=== PATIENT | female | born 1960 | race Caucasian/White ===

== ENCOUNTER 2021-02-02 17:19 | Emergency (ER) | payer BC, SELFPAY ==
--- NOTE | ~2021-02-02 | XR_ITS ---
EXAMINATION: XR HAND, RIGHT CLINICAL INFORMATION: Injury 4th and 5th digit, right hand. COMPARISON: None TECHNIQUE: PA, lateral, and oblique views of the right hand. FINDINGS: Subtle lucency in the soft tissues along the ulnar aspect of the 5th digit, may reflect a soft tissue laceration. No radiopaque foreign body is identified. No acute fracture or dislocation is seen. There are arthritic changes present. 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 Arthritic changes in the IP joints of the fingers, including the 2nd through 5th DIP joints. XR/XR hand RT min 3V IMPRESSION: 1. No radiopaque foreign bodies identified by x-ray. 2. No evidence of acute fracture or dislocation. 3. Arthritic changes as above.
[2021-02-02 17:25] VITALS: BP 145/85; PULSE 80; RESP 12; TEMP 36.8; O2SAT 97; BMI 35.3
--- NOTE | 2021-02-02 17:49 | ED_ITS ---
HPI - Animal Bite General Chief Complaint: Animal Bite Stated Complaint: dog bite Time Seen by Provider: 02/02/21 17:49 Source: patient and family () Mode of arrival: ambulatory Limitations: no limitations History of Present Illness HPI narrative: 60-year-old female came in after was bitten by her own dog, patient was trimming his nail and tail the dog got anxious and bit the patient, patient sustained a small bite on her right 5th and 4th in fingers. Patient remember her own last tetanus shot, dog is up-to-date on his vaccination and no change in a dog behavior. Related Data Previous Rx's Medication Instructions Recorded amoxicillin-pot clavulanate 1 tab PO BID #20 tab 02/02/21 [Augmentin] Allergies Allergy/AdvReac Type Severity Reaction Status Date / Time No Known Allergies Allergy Verified 02/02/21 17:36 Review of Systems Review of Systems: All other systems are reviewed and are negative Constitutional: Reports as per HPI and Reports no additional constitutional complaints Eyes: Reports as per HPI and Reports no additional eye complaints Reports system reviewed and no additional complaints, except as documented Cardiovascular: Reports as per HPI and Reports no additional cardiovascular complaints Respiratory: Reports as per HPI and Reports no additional respiratory complaints Gastrointestinal: Reports as per HPI and Reports no additional gastrointestinal complaints Genitourinary: Reports no additional female genitourinary complaints Musculoskeletal: Reports no additional musculoskeletal complaints Skin/Breast: Reports system reviewed and no additional complaints, except as docu Psychiatric: Reports no additional psychiatric complaints Endocrine: Reports no additional endocrine complaints Hematologic/Lymphatic: Reports no additional hematologic/lymphatic complaints Allergic/Immunologic: Reports no additional allergic/immunologic complaints Reports system reviewed and no additional complaints, except as documented and Reports Abnormal speech present [facility] Social History Social History Alcohol intake: never Use of substances other than those prescribed or required for medical reasons: No Any prior treatment program specific to substance use: No Advance Directives: No Physical Exam Vital Signs: Vital Signs: Last Vital Signs Temp 98.3 F 02/02/21 17:25 Pulse 80 02/02/21 17:25 Resp 12 02/02/21 17:25 BP 145/85 H 02/02/21 17:25 Pulse Ox 97 02/02/21 17:25 Body Mass Index 35.3 Vital signs have been reviewed as appeared to be correct. Blood pressure normal. Heart rate normal. Respiration rate normal. Temperature normal. Oxygen saturation normal. Appearance: Alert. Oriented X3. No acute distress. Head: Normal external exam. Normocephalic. Atraumatic. No Christianson signs noted. No raccoon eyes noted Eyes: PERRLA. EOMI. Conjunctiva and sclera normal. Eyelids normal. ENT: TM's Normal. Pharynx normal. Uvula midline. Moist mucous membranes. No trismus noted. No drooling noted. No muffled voice noted. Neck: Normal inspection. Neck supple. FROM. No adenopathy. Thyroid Normal. No meningeal signs. No neck mass noted. CVS: Normal heart rate and rhythm. Heart sound normal. No murmurs noted. Pulses normal throughout. Respiratory: No respiratory distress. Painless inspiration. Breath sounds emily l. No wheezes/rales/rhonchi noted. Chest nontender. No accessory muscle usage noted or decreased air movement noted. Abdomen: Soft and nontender. Bowel sounds normal in all 4 quadrants. No distention noted. No organomegaly noted. No visible injury noted. Back: No CVA tenderness. Full range of motion noted. Skin: Skin warm and dry. Normal skin color. Normal skin turgor. No rashes/lesions/lacerations noted. Extremities: 3 x 1 cm laceration on the dorsal aspect of the right 5th finger no active bleeding, move 5th finger in for range, small puncture wound on dorsum of the 4th finger, full range of motion of the right 4th finger, neurovascular exam is intact. Neuro: Oriented X 3. No motor deficit. No sensory deficit. Reflexes normal. Course Course Course Narrative: Assessment and plan. Dog bite was up-to-date on his immunization, will not suture and laceration on the finger worry of infection will start the patient on Augmentin, cleaned the wound with dressing. Discharge Plan Discharge Clinical Impression: Dog bite Patient Disposition: Home, Self-Care Instructions: Animal Bite (ED) Prescriptions: New amoxicillin-pot clavulanate [Augmentin] 500-125 mg tablet 1 tab PO BID Qty: 20 RF: 0 Referrals: Jagruti Lopez MD [Primary Care Provider] - 2 days Stand Alone Forms: Work/School Release
[2021-02-02] MEDS: Diphth,Pertus(ACell),Tet Adult 0.5 ML SYRINGE IM (18:42)
[2021-02-02] MEDS: Amoxicillin/Potassium Clav 500 MG TABLET PO (18:43)
--- NOTE | 2021-02-02 18:54 | PC.NURSE ---
BITE TO RIGHT PINKY AND RING FINGER FLUSHED WITH NS AND ANTIBIOTIC OINTMENT APPLIED WITH DSD.
== END 2021-02-02 19:02 | disposition home or self-care (01) ==
PROVIDERS: Emergency Provider Emergency Medicine; PCP Internal Medicine
DX: S61.216A Laceration without foreign body of right little finger without damage to nail, initial encounter (principal); S61.234A Puncture wound without foreign body of right ring finger without damage to nail, initial encounter; W54.0XXA Bitten by dog, initial encounter; Y93.K3 Activity, grooming and shearing an animal; Y92.019 Unspecified place in single-family (private) house as the place of occurrence of the external cause; Y99.9 Unspecified external cause status
CPT/HCPCS: 73130; 90471; 90715; 99284

== ENCOUNTER 2022-01-14 09:31 | Outpatient (REF) | payer BC, SELFPAY ==
--- NOTE | 2022-01-14 09:36 | ECG_ITS ---
Test Reason : htn Blood Pressure : / mmHG Vent. Rate : 077 BPM Atrial Rate : 077 BPM P-R Int : 134 ms QRS Dur : 072 ms QT Int : 404 ms P-R-T Axes : 024 014 036 degrees QTc Int : 457 ms Normal sinus rhythm Nonspecific ST and T wave abnormality Abnormal ECG No previous ECGs available Referred By: Renu Fregoso Electronically Signed By:DARI RUBIO MD
[2022-01-14 09:46] LABS: MANUAL DIFF FLAG NO
[2022-01-14 10:07] LABS: Basophils Absolute Auto 0.1 X10*3/uL (0.0-0.2); Eosinophils Absolute Auto 0.4 X10*3/uL (0.0-0.4); Eosinophils Percent Auto 6.2 % (0-4); Hematocrit 41.5 % (37.0-47.0); Hemoglobin 13.5 g/dl (12.0-16.0); Imm Gran Abs Auto 0.01 X10*3/uL (0.00-0.03); Imm Gran Pct Auto 0.2 % (0.0-0.4); Lymphocytes Percent Auto 32.3 % (20-40); Mean Corpuscular HGB Conc 32.5 g/dl (31.0-35.0); Mean Corpuscular Hemoglobin 29.6 pg (27.0-33.0); Mean Platelet Volume 9.4 fL (9.4-12.3); Monocytes Absolute Auto 0.4 X10*3/uL (0.1-1.2); Neutrophils Absolute Auto 3.4 x10*3/uL (2.0-8.3); Neutrophils Percent Auto 54.3 % (45-73); Platelet Count 333 X10*3/uL (160-400); Red Blood Count 4.56 X10*6/uL (4.20-5.50); Red Cell Distribution Width 12.6 % (11.0-16.0); White Blood Count 6.2 X10*3/uL (4.8-10.8)
[2022-01-14 10:48] LABS: Alanine Aminotransferase 18 U/L (0-31); Albumin Level 4.1 g/dL (3.5-5.0); Alkaline Phosphatase 73 U/L (39-117); Anion Gap 13 (12-20); Aspartate Amino Transferase 16 U/L (5-31); Bilirubin Total 0.6 mg/dL (0.0-1.0); Blood Urea Nitrogen 14 mg/dL (9-16); Calcium 9.4 mg/dL (8.4-10.2); Carbon Dioxide 26 mmol/L (22-29); Chloride 103 mmol/L (96-108); Cholesterol 221 mg/dL; Estimated Glomerular Filt Rate > 60; Glucose Fasting 109 mg/dL (60-99); HDL Cholesterol 52 mg/dL; LDL Cholesterol Calculated 144 mg/dl; Potassium 3.8 mmol/L (3.3-5.1); Sodium 138 mmol/L (135-145); Total Protein 7.1 g/dL (6.5-8.0); Triglycerides 127 mg/dL
[2022-01-14 10:53] LABS: TSH reflex Free T4 0.07 uIU/mL (0.32-4.0)
[2022-01-14 12:02] LABS: Free T4 (Free Thyroxine) 1.21 ng/dL (0.71-1.85)
[2022-01-18 13:56] LABS: Vitamin D 25-OH, D2 <4 ng/mL; Vitamin D 25-OH, D3 56 ng/mL; Vitamin D 25-OH, Total 56 ng/mL (30-100)
== END 2022-01-14 09:32 | disposition home or self-care (01) ==
LOC: HO.LAB 09:31
PROVIDERS: Visit Provider Nurse Practitioner Family
DX: E03.9 Hypothyroidism, unspecified (principal); E78.00 Pure hypercholesterolemia, unspecified; I10 Essential (primary) hypertension; K51.90 Ulcerative colitis, unspecified, without complications; T50.905A Adverse effect of unspecified drugs, medicaments and biological substances, initial encounter; Z76.89 Persons encountering health services in other specified circumstances
CPT/HCPCS: 36415; 80053; 80061; 82306; 84439; 84443; 85025; 93005

== ENCOUNTER 2023-02-08 13:14 | Observation (INO) | payer BC, SELFPAY ==
--- NOTE | ~2023-02-08 | XR_ITS ---
EXAMINATION: XR CHEST CLINICAL INFORMATION: Cough COMPARISON: None available. TECHNIQUE: 2 views of the chest were obtained. FINDINGS: No significant abnormality is noted involving the heart, lungs, mediastinum, bony thorax or soft tissues. Surgical clips right upper quadrant of abdomen XR/XR chest 2V IMPRESSION: Unremarkable examination.
--- NOTE | ~2023-02-08 | CT_ITS ---
EXAMINATION: CT ANGIOGRAM OF THE CHEST WITH AND WITHOUT CONTRAST (CT PULMONARY ANGIOGRAM FOR PE) CLINICAL INFORMATION: Reason for Exam shortness of breath with exertion COMPARISON: Chest x-ray 02/08/2023 TECHNIQUE: Prior to contrast administration, noncontrast localization images were obtained. Subsequently, multidetector volumetric imaging was performed from the thoracic inlet to below the diaphragms following the administration of 65 mL Omnipaque 350 intravenous contrast. No contrast reaction reported Sagittal, coronal, and MIP oblique sagittal reformatted images were obtained on the CT workstation, uploaded to PACS, and reviewed. This CT examination was performed using dose optimization techniques as appropriate, variously including the following: *Automated exposure control *Adjustment of mA and/or kV according to patient size (this includes techniques or standardized protocols for targeted exams where dose is matched to indication/reason for exam; i.e. extremities or head) *Use of iterative reconstruction technique Total exam dose-length product 278 mGy-cm FINDINGS: QUALITY OF STUDY/CONTRAST BOLUS: Satisfactory. PULMONARY ARTERIES: No pulmonary emboli. THORACIC AORTA: No aneurysm. There is a normal three-vessel branching of the arch LUNG: No focal consolidation, nodules or masses. PLEURA: No pleural effusion or pneumothorax. MEDIASTINUM: Normal heart size. No pericardial effusion. No hilar or mediastinal lymphadenopathy. No evidence of septal bowing or right heart strain. There is mild thickening of the ventricular septum. CORONARY ARTERY CALCIFICATION: None visualized on this study. CHEST WALL/AXILLA: No axillary or internal mammary lymphadenopathy. OSSEOUS STRUCTURES: No aggressive lytic or sclerotic process seen. Mild ventral spondylosis lower dorsal and lumbar spine. UPPER ABDOMEN: Visualized liver, spleen, pancreas and bilateral adrenal glands unremarkable. The gallbladder has been surgically removed. No reflux of contrast into the hepatic veins to suggest elevated right heart pressures. CT/CT angio chest PE protocol IMPRESSION: No evidence of PE. No evidence of aortic dissection or aneurysm. The lungs are clear. VTE: negative
--- NOTE | 2023-02-08 13:16 | ECG_ITS ---
Test Reason : PALPITATIONS Blood Pressure : / mmHG Vent. Rate : 090 BPM Atrial Rate : 090 BPM P-R Int : 132 ms QRS Dur : 072 ms QT Int : 348 ms P-R-T Axes : 019 -06 046 degrees QTc Int : 425 ms Normal sinus rhythm Minimal voltage criteria for LVH, may be normal variant ( R in aVL ) Inferior infarct , age undetermined Abnormal ECG When compared with ECG of 14-JAN-2022 09:36, Inferior infarct is now Present Nonspecific T wave abnormality now evident in Anterior leads Referred By: Danitza Avina Electronically Signed By:BETTINA HAMILTON
[2023-02-08 13:50] VITALS: BP 151/95; PULSE 90; RESP 18; TEMP 36.7; O2SAT 97; BMI 35.2
--- NOTE | 2023-02-08 13:50 | ED.GENADULT ---
HPI - General Adult General Chief complaint: Arrhythmia/Palpitations <EVERARDO Redd - Last Filed: 02/08/23 13:55> Stated complaint: Heart palpations <EVERARDO Redd - Last Filed: 02/08/23 13:55> Time Seen by Provider: 02/08/23 16:53 <EVERARDO Redd - Last Filed: 02/08/23 13:55> Source: patient, family, RN notes reviewed and old records reviewed <Herber Frankel - Last Filed: 02/08/23 20:36> Mode of arrival: ambulatory <Herber Frankel - Last Filed: 02/08/23 20:36> Limitations: no limitations <Herber Frankel - Last Filed: 02/08/23 20:36> History of Present Illness HPI narrative: 62-year-old female with past medical history significant for hypertension, hypothyroidism, ulcerative colitis, anxiety presents for evaluation of shortness of breath with exertion. Patient notes increasing episodes of the last week of shortness of breath with any kind of exertion. She states the symptoms have been worse for the last 3 days Patient states that she usually goes for a walk daily with her but has been unable to do so due to getting very short of breath about care home through her walks and becoming ?very sweaty any time I even go up a flight of stairs. ? She reports mild chest tightness but no severe chest pain when this happens She feels that her heart rate goes very fast when this happens. She states that she has no history of coronary artery disease and it does not run in her family She has never seen a advanced manufacturing vice president She believes she takes metoprolol for high blood pressure <Herber Frankel - Last Filed: 02/08/23 20:36> Related Data Home medications: Previous Rx's Medication Instructions Recorded budesonide-formoterol HFA 160 2 puff inhalation DAILY PRN 01/01/22 mcg-4.5 mcg/actuation aerosol shortness of breath #10.2 grams inhaler cholecalciferol (vitamin D3) 25 25 mcg PO DAILY #90 tabs 01/01/22 mcg (1,000 unit) tablet hydrochlorothiazide 25 mg tablet 25 mg PO DAILY #90 tabs 01/01/22 vitamin B complex 1 tab PO DAILY #90 tabs 01/01/22 mesalamine 800 mg tablet,delayed 800 mg PO DAILY #180 tabs 01/08/22 release levothyroxine 125 mcg tablet 125 mcg PO DAILY #90 tabs 04/03/22 metoprolol succinate 50 mg 50 mg PO QAM #30 tabs 12/23/22 tablet,extended release 24 hr venlafaxine 150 mg 150 mg PO DAILY #90 caps 12/23/22 capsule,extended release 24 hr <EVERARDO Redd - Last Filed: 02/08/23 13:55> Allergies/adverse reactions: Allergies Allergy/AdvReac Type Severity Reaction Status Date / Time lisinopril Allergy Mild Cough Verified 01/01/22 15:49 <EVERARDO Redd - Last Filed: 02/08/23 13:55> Review of Systems Constitutional: Constitutional: Reports as per HPI, Denies chills, Denies fatigue, Denies fever(s) and Denies headache(s) <Herber Frankel - Last Filed: 02/08/23 20:36> ENT: Denies headache(s) <Herber Frankel - Last Filed: 02/08/23 20:36> Cardiovascular: Cardiovascular: Reports chest pain with activity, Reports diaphoresis, Reports rapid heart rate and Reports dyspnea on exertion <Herber Frankel - Last Filed: 02/08/23 20:36> Respiratory: Respiratory: Denies cough and Reports dyspnea on exertion <Herber Frankel - Last Filed: 02/08/23 20:36> Gastrointestinal: Gastrointestinal: Denies abdominal pain, Denies constipation and Denies vomiting <Herber Frankel - Last Filed: 02/08/23 20:36> Genitourinary: Genitourinary: Denies dysuria <Herber Frankel - Last Filed: 02/08/23 20:36> Neurologic: Denies headache(s) and Denies focal weakness <Herber Frankel - Last Filed: 02/08/23 20:36> Endocrine: Endocrine: Denies fatigue <Herber Frankel - Last Filed: 02/08/23 20:36> FOR[facility]LY [facility], [facility] Past Medical History Surgical History: Surgical History (Updated 01/01/22 @ 15:26 by MOIZ Godinez) History of section History of cholecystectomy <EVERARDO Redd - Last Filed: 02/08/23 13:55> Family History Family History: Family History (Updated 01/01/22 @ 15:52 by YAHAIRA Gusman) Mother Ovarian cancer, Onset Age: 85 Maternal Grandmother CVD (cardiovascular disease) Sister Diabetes Father John disease Tuberculosis <EVERARDO Redd - Last Filed: 02/08/23 13:55> Social History Social History: Social History (Updated 01/01/22 @ 15:26 by MOIZ Godinez) Housing: House Alcohol intake: current Alcohol intake frequency: holidays/special occasions only Patient Tobacco Use Status: Former Tobacco user e-Cigarette/Vaping Use: Never Used Second Hand Smoke Exposure: No Advance Directives: Yes Advance Directives Information Provided: No Advance Directives on File: No service: No Current occupational status: employed Current occupation: [employer] Cognitive needs: No Hearing needs: No Vision needs: Yes (glasses) <EVERARDO Redd - Last Filed: 02/08/23 13:55> Physical Exam ED Vital Signs: Vital Signs - 24 hr 02/08/23 13:50 Temperature 98.1 F Pulse Rate 90 Respiratory Rate 18 Blood Pressure 151/95 H Pulse Oximetry 97 Oxygen Delivery Method Room Air BMI result Body Mass Index 35.2 <EVERARDO Redd - Last Filed: 02/08/23 13:55> Vital Signs - 24 hr 02/08/23 13:50 Temperature 98.1 F Pulse Rate 90 Respiratory Rate 18 Blood Pressure 151/95 H Pulse Oximetry 97 Oxygen Delivery Method Room Air BMI result Body Mass Index 35.2 <Herber Frankel - Last Filed: 02/08/23 20:36> Const General: healthy appearing, comfortable, no acute distress, alert and awake <Herber Frankel - Last Filed: 02/08/23 20:36> Nutritional Appearance: well nourished <Herber Frankel - Last Filed: 02/08/23 20:36> Orientation/consciousness: patient oriented x3 <Herber Frankel - Last Filed: 02/08/23 20:36> HENMT Head: Yes normocephalic and Yes atraumatic < Last Filed: 02/08/23 20:36> Throat: Yes posterior oropharynx normal < Last Filed: 02/08/23 20:36> Eyes Eyelids: Yes eyelids normal < Last Filed: 02/08/23 20:36> Conjunctivae: conjunctivae normal < Last Filed: 02/08/23 20:36> Sclerae: sclerae normal < Last Filed: 02/08/23 20:36> Corneas: corneas normal < Last Filed: 02/08/23 20:36> Pupils: Equal, round and reactive pupils present < Last Filed: 02/08/23 20:36> EOM: EOMs intact bilaterally < Last Filed: 02/08/23 20:36> Neck Neck: Yes full ROM < Last Filed: 02/08/23 20:36> Resp Effort & Inspection: normal respiratory effort, able to speak in complete sentences, no audible wheezes and not labored < Last Filed: 02/08/23 20:36> Auscultation: clear to auscultation bilaterally < Last Filed: 02/08/23 20:36> Cardio Rate: regular rate < Last Filed: 02/08/23 20:36> Rhythm: regular rhythm < Last Filed: 02/08/23 20:36> GI Inspection: No distended < Last Filed: 02/08/23 20:36> Palpation (GI): Soft to palpation, not firm, nontender, no guarding and not rigid < Last Filed: 02/08/23 20:36> Auscultation: normoactive bowel sounds < Last Filed: 02/08/23 20:36> Skin General skin exam: no rashes or lesions noted and elasticity normal < Last Filed: 02/08/23 20:36> Neuro General: patient oriented x3 <Herber Frankel - Last Filed: 02/08/23 20:36> Cranial nerves: Yes CN's II-XII intact bilaterally, Yes Equal, round and reactive pupils present and Yes Bilaterally intact EOM present <Herber Frankel - Last Filed: 02/08/23 20:36> Cognition (Neuro): normal cognition <Herber Frankel - Last Filed: 02/08/23 20:36> Extrem Other: Moving all extremities well without any obvious deformities <Herber Frankel - Last Filed: 02/08/23 20:36> Course Course Course Narrative: RME - 62yo female with history of HTN, hypothyroidism, and diabetes presenting for palpitations for 3 days. Patient endorses sweating. Heart rates reached 115 in triage. Non-toxic appearing. Plan: ECG, CXR, labs <EVERARDO Redd - Last Filed: 02/08/23 13:55> Reevaluation(s) Reevaluation #1: CTA negative. Discussed with Cardiology, Dr. Collier who agrees the plan for admission and likely stress test given the patient's reported of significant dyspnea on exertion and diaphoresis over the last week. <Herber Frankel - Last Filed: 02/08/23 20:36> Time: 20:26 <Herber Frankel - Last Filed: 02/08/23 20:36> Medications Administered Discontinued Medications Generic Name Dose Route Start Last Admin Trade Name Freq PRN Reason Stop Dose Admin Iohexol 100 ml 02/08/23 19:26 02/08/23 19:27 Iohexol 350 Mg/Ml 100 Ml Infus..Btl IV 02/08/23 19:27 65 ml ONCE ONE Administration <EVERARDO Redd - Last Filed: 02/08/23 13:55> Medications Administered Discontinued Medications Generic Name Dose Route Start Last Admin Trade Name Freq PRN Reason Stop Dose Admin Iohexol 100 ml 02/08/23 19:26 02/08/23 19:27 Iohexol 350 Mg/Ml 100 Ml Infus..Btl IV 02/08/23 19:27 65 ml ONCE ONE Administration <Herber Frankel - Last Filed: 02/08/23 20:36> Medical Decision Making Medical Decision Making [facility] Narrative: The patient is quite comfortable at rest, her labs are reassuring. Will get a repeat troponin. However her history is quite concerning that she gets extremely short of breath with diaphoresis any time she walks up 1 flight of stairs. Given that she reports tachycardia with this and shortness of breath or tries tightness will get a CTA to rule out PE. <Herber Frankel - Last Filed: 02/08/23 20:36> Differential Diagnosis Stable angina ACS Coronary artery disease PE Hyperthyroidism <Herber Frankel - Last Filed: 02/08/23 20:36> Lab Data [facility] Lab Attestation statement: I reviewed the patient's lab results. <Herber Frankel - Last Filed: 02/08/23 20:36> Result Diagrams: 02/08/23 14:01 02/08/23 14:01 <EVERARDO Redd - Last Filed: 02/08/23 13:55> Labs: Lab Results 02/08/23 02/08/23 02/08/23 Range/Units 14:01 14:01 14:01 WBC 9.8 (4.8-10.8) X10*3/uL RBC 4.54 (4.20-5.50) X10*6/uL Hgb 13.7 (12.0-16.0) g/dl Hct 41.1 (37.0-47.0) % MCV 90.5 (80.0-98.0) fL MCH 30.2 (27.0-33.0) pg MCHC 33.3 (31.0-35.0) g/dl RDW 11.9 (11.0-16.0) % Plt Count 356 (160-400) X10*3/uL MPV 9.5 (9.4-12.3) fL Immature Gran % (Auto) 0.2 (0.0-0.4) % Neut % (Auto) 58.1 (45-73) % Lymph % (Auto) 27.7 (20-40) % Cabell % (Auto) 7.5 (2-11) % Eos % (Auto) 5.9 H (0-4) % Baso % (Auto) 0.6 (0-2) % Lymph # (Auto) 2.7 (1.2-4.9) X10*3/uL Cabell # (Auto) 0.7 (0.1-1.2) X10*3/uL Eos # (Auto) 0.6 H (0.0-0.4) X10*3/uL Baso # (Auto) 0.1 (0.0-0.2) X10*3/uL Abs Immat Gran (auto) 0.02 (0.00-0.03) X10*3/uL Absolute Neuts (auto) 5.7 (2.0-8.3) x10*3/uL Absolute Nucleated RBC 0.000 (0.0-0.012) X10*3/uL Nucleated RBC % (auto) 0.0 (0.0-0.2) /100WBC Sodium 142 (135-145) mmol/L Potassium 3.3 (3.3-5.1) mmol/L Chloride 102 (96-108) mmol/L Carbon Dioxide 29 (22-29) mmol/L Anion Gap 14 (12-20) BUN 14 (9-16) mg/dL Creatinine 0.73 (0.5-1.4) mg/dL Estim Creat Clear Calc 76.6 Estimated GFR > 60 Random Glucose 131 H (60-115) mg/dL Calcium 9.4 (8.4-10.2) mg/dL Magnesium 1.9 (1.6-2.6) mg/dL Total Bilirubin 0.4 (0.0-1.0) mg/dL Direct Bilirubin 0.1 (0.0-0.5) mg/dL AST 20 (5-31) U/L ALT 27 (0-31) U/L Alkaline Phosphatase 73 (39-117) U/L Troponin I High Sens 3.2 (<3.5-17.0) ng/L B-Natriuretic Peptide (<100) pg/mL Total Protein 7.1 (6.5-8.0) g/dL Albumin 4.3 (3.5-5.0) g/dL Lipase 23 (8-78) U/L TSH 0.07 L (0.32-4.0) uIU/mL Free T4 1.45 (0.71-1.85) ng/dL 02/08/23 02/08/23 Range/Units 14:01 18:17 WBC (4.8-10.8) X10*3/uL RBC (4.20-5.50) X10*6/uL Hgb (12.0-16.0) g/dl Hct (37.0-47.0) % MCV (80.0-98.0) fL MCH (27.0-33.0) pg MCHC (31.0-35.0) g/dl RDW (11.0-16.0) % Plt Count (160-400) X10*3/uL MPV (9.4-12.3) fL Immature Gran % (Auto) (0.0-0.4) % Neut % (Auto) (45-73) % Lymph % (Auto) (20-40) % Cabell % (Auto) (2-11) % Eos % (Auto) (0-4) % Baso % (Auto) (0-2) % Lymph # (Auto) (1.2-4.9) X10*3/uL Cabell # (Auto) (0.1-1.2) X10*3/uL Eos # (Auto) (0.0-0.4) X10*3/uL Baso # (Auto) (0.0-0.2) X10*3/uL Abs Immat Gran (auto) (0.00-0.03) X10*3/uL Absolute Neuts (auto) (2.0-8.3) x10*3/uL Absolute Nucleated RBC (0.0-0.012) X10*3/uL Nucleated RBC % (auto) (0.0-0.2) /100WBC Sodium (135-145) mmol/L Potassium (3.3-5.1) mmol/L Chloride (96-108) mmol/L Carbon Dioxide (22-29) mmol/L Anion Gap (12-20) BUN (9-16) mg/dL Creatinine (0.5-1.4) mg/dL Estim Creat Clear Calc Estimated GFR Random Glucose (60-115) mg/dL Calcium (8.4-10.2) mg/dL Magnesium (1.6-2.6) mg/dL Total Bilirubin (0.0-1.0) mg/dL Direct Bilirubin (0.0-0.5) mg/dL AST (5-31) U/L ALT (0-31) U/L Alkaline Phosphatase (39-117) U/L Troponin I High Sens < 2.7 (<3.5-17.0) ng/L B-Natriuretic Peptide 16 (<100) pg/mL Total Protein (6.5-8.0) g/dL Albumin (3.5-5.0) g/dL Lipase (8-78) U/L TSH (0.32-4.0) uIU/mL Free T4 (0.71-1.85) ng/dL <EVERARDO Redd - Last Filed: 02/08/23 13:55> Lab Results 02/08/23 02/08/23 02/08/23 Range/Units 14:01 14:01 14:01 WBC 9.8 (4.8-10.8) X10*3/uL RBC 4.54 (4.20-5.50) X10*6/uL Hgb 13.7 (12.0-16.0) g/dl Hct 41.1 (37.0-47.0) % MCV 90.5 (80.0-98.0) fL MCH 30.2 (27.0-33.0) pg MCHC 33.3 (31.0-35.0) g/dl RDW 11.9 (11.0-16.0) % Plt Count 356 (160-400) X10*3/uL MPV 9.5 (9.4-12.3) fL Immature Gran % (Auto) 0.2 (0.0-0.4) % Neut % (Auto) 58.1 (45-73) % Lymph % (Auto) 27.7 (20-40) % Cabell % (Auto) 7.5 (2-11) % Eos % (Auto) 5.9 H (0-4) % Baso % (Auto) 0.6 (0-2) % Lymph # (Auto) 2.7 (1.2-4.9) X10*3/uL Cabell # (Auto) 0.7 (0.1-1.2) X10*3/uL Eos # (Auto) 0.6 H (0.0-0.4) X10*3/uL Baso # (Auto) 0.1 (0.0-0.2) X10*3/uL Abs Immat Gran (auto) 0.02 (0.00-0.03) X10*3/uL Absolute Neuts (auto) 5.7 (2.0-8.3) x10*3/uL Absolute Nucleated RBC 0.000 (0.0-0.012) X10*3/uL Nucleated RBC % (auto) 0.0 (0.0-0.2) /100WBC Sodium 142 (135-145) mmol/L Potassium 3.3 (3.3-5.1) mmol/L Chloride 102 (96-108) mmol/L Carbon Dioxide 29 (22-29) mmol/L Anion Gap 14 (12-20) BUN 14 (9-16) mg/dL Creatinine 0.73 (0.5-1.4) mg/dL Estim Creat Clear Calc 76.6 Estimated GFR > 60 Random Glucose 131 H (60-115) mg/dL Calcium 9.4 (8.4-10.2) mg/dL Magnesium 1.9 (1.6-2.6) mg/dL Total Bilirubin 0.4 (0.0-1.0) mg/dL Direct Bilirubin 0.1 (0.0-0.5) mg/dL AST 20 (5-31) U/L ALT 27 (0-31) U/L Alkaline Phosphatase 73 (39-117) U/L Troponin I High Sens 3.2 (<3.5-17.0) ng/L B-Natriuretic Peptide (<100) pg/mL Total Protein 7.1 (6.5-8.0) g/dL Albumin 4.3 (3.5-5.0) g/dL Lipase 23 (8-78) U/L TSH 0.07 L (0.32-4.0) uIU/mL Free T4 1.45 (0.71-1.85) ng/dL 02/08/23 02/08/23 Range/Units 14:01 18:17 WBC (4.8-10.8) X10*3/uL RBC (4.20-5.50) X10*6/uL Hgb (12.0-16.0) g/dl Hct (37.0-47.0) % MCV (80.0-98.0) fL MCH (27.0-33.0) pg MCHC (31.0-35.0) g/dl RDW (11.0-16.0) % Plt Count (160-400) X10*3/uL MPV (9.4-12.3) fL Immature Gran % (Auto) (0.0-0.4) % Neut % (Auto) (45-73) % Lymph % (Auto) (20-40) % [place] % (Auto) (2-11) % Eos % (Auto) (0-4) % Baso % (Auto) (0-2) % Lymph # (Auto) (1.2-4.9) X10*3/uL [place] # (Auto) (0.1-1.2) X10*3/uL Eos # (Auto) (0.0-0.4) X10*3/uL Baso # (Auto) (0.0-0.2) X10*3/uL Abs Immat Gran (auto) (0.00-0.03) X10*3/uL Absolute Neuts (auto) (2.0-8.3) x10*3/uL Absolute Nucleated RBC (0.0-0.012) X10*3/uL Nucleated RBC % (auto) (0.0-0.2) /100WBC Sodium (135-145) mmol/L Potassium (3.3-5.1) mmol/L Chloride (96-108) mmol/L Carbon Dioxide (22-29) mmol/L Anion Gap (12-20) BUN (9-16) mg/dL Creatinine (0.5-1.4) mg/dL Estim Creat Clear Calc Estimated GFR Random Glucose (60-115) mg/dL Calcium (8.4-10.2) mg/dL Magnesium (1.6-2.6) mg/dL Total Bilirubin (0.0-1.0) mg/dL Direct Bilirubin (0.0-0.5) mg/dL AST (5-31) U/L ALT (0-31) U/L Alkaline Phosphatase (39-117) U/L Troponin I High Sens < 2.7 (<3.5-17.0) ng/L B-Natriuretic Peptide 16 (<100) pg/mL Total Protein (6.5-8.0) g/dL Albumin (3.5-5.0) g/dL Lipase (8-78) U/L TSH (0.32-4.0) uIU/mL Free T4 (0.71-1.85) ng/dL <Herber Frankel - Last Filed: 02/08/23 20:36> Independent Interpretation I performed an independent interpretation of an: EKG (Sinus rhythm with a rate of 90 beats per minute. When compared to EKG from January 14, 2022, T-wave inversions are noted in AVF) <Herber Frankel - Last Filed: 02/08/23 20:36> Discharge Plan Discharge Clinical Impression: Stable angina <EVERARDO Redd - Last Filed: 02/08/23 13:55> Patient Disposition: Admitted As Inpatient <EVERARDO Redd - Last Filed: 02/08/23 13:55>
[2023-02-08 14:06] LABS: MANUAL DIFF FLAG NO
[2023-02-08 14:07] LABS: Basophils Absolute Auto 0.1 X10*3/uL (0.0-0.2); Basophils Percent Auto 0.6 % (0-2); Eosinophils Absolute Auto 0.6 X10*3/uL (0.0-0.4); Eosinophils Percent Auto 5.9 % (0-4); Hematocrit 41.1 % (37.0-47.0); Hemoglobin 13.7 g/dl (12.0-16.0); Imm Gran Abs Auto 0.02 X10*3/uL (0.00-0.03); Imm Gran Pct Auto 0.2 % (0.0-0.4); Lymphocytes Absolute Auto 2.7 X10*3/uL (1.2-4.9); Lymphocytes Percent Auto 27.7 % (20-40); Mean Corpuscular HGB Conc 33.3 g/dl (31.0-35.0); Mean Corpuscular Hemoglobin 30.2 pg (27.0-33.0); Mean Corpuscular Volume 90.5 fL (80.0-98.0); Mean Platelet Volume 9.5 fL (9.4-12.3); Monocytes Absolute Auto 0.7 X10*3/uL (0.1-1.2); Monocytes Percent Auto 7.5 % (2-11); Neutrophils Absolute Auto 5.7 x10*3/uL (2.0-8.3); Neutrophils Percent Auto 58.1 % (45-73); Platelet Count 356 X10*3/uL (160-400); Red Blood Count 4.54 X10*6/uL (4.20-5.50); Red Cell Distribution Width 11.9 % (11.0-16.0); White Blood Count 9.8 X10*3/uL (4.8-10.8)
[2023-02-08 14:28] LABS: B Type Natriuretic Peptide 16 pg/mL (<100); Troponin-I High Sensitivity 3.2 ng/L (<3.5-17.0)
[2023-02-08 14:33] LABS: Alanine Aminotransferase 27 U/L (0-31); Albumin Level 4.3 g/dL (3.5-5.0); Alkaline Phosphatase 73 U/L (39-117); Anion Gap 14 (12-20); Aspartate Amino Transferase 20 U/L (5-31); Bilirubin Direct 0.1 mg/dL (0.0-0.5); Bilirubin Total 0.4 mg/dL (0.0-1.0); Blood Urea Nitrogen 14 mg/dL (9-16); Calcium 9.4 mg/dL (8.4-10.2); Carbon Dioxide 29 mmol/L (22-29); Chloride 102 mmol/L (96-108); Creatinine Clr Calc Pharmacy 76.6; Estimated Glomerular Filt Rate > 60; Glucose Random 131 mg/dL (60-115); Lipase 23 U/L (8-78); Magnesium 1.9 mg/dL (1.6-2.6); Potassium 3.3 mmol/L (3.3-5.1); Sodium 142 mmol/L (135-145); Total Protein 7.1 g/dL (6.5-8.0)
[2023-02-08 14:48] LABS: TSH reflex Free T4 0.07 uIU/mL (0.32-4.0)
[2023-02-08 15:28] LABS: Free T4 (Free Thyroxine) 1.45 ng/dL (0.71-1.85)
[2023-02-08 18:45] LABS: Troponin-I High Sensitivity < 2.7 ng/L (<3.5-17.0)
[2023-02-08] MEDS: iohexoL 350 MG/ML 100 ML INFUS..BTL IV (19:27)
[2023-02-08] MEDS: Enoxaparin Sodium 40 MG/0.4 ML SYRINGE SUBCUT (21:22)
[2023-02-08 21:28] VITALS: BP 148/78; PULSE 70; RESP 17; O2SAT 94
--- NOTE | 2023-02-08 21:30 | PM.IMHP ---
History of Present Illness Date of Service: 02/08/23 Attending physician on admission: Sara Rowe Chief Complaint: Shortness of breath with activity This is a 62-year-old female with a past medical history as noted below who presented to the emergency department with complaints of shortness of breath on exertion ongoing for the past week however worse over the past 3 days. Patient reports that she is usually able to go on daily walks with her however over the past 3 days she is having difficulty even getting up the stairs. She reports that she ?sweats profusely and feels that her heart is racing?. At current time, patient is denying chest pain, palpitations or shortness of breath at rest. Chest x-ray: Unremarkable examination Chest CT with/without:No evidence of PE. No evidence of aortic dissection or aneurysm. The lungs are clear. VTE: negative Initial laboratory results: Unremarkable CBC with diff and CMP with the exception of a random glucose 131, TSH 0.07. Free T4 1.45. In the emergency department the above was performed. The decision made to admit patient for medical management. Review of Systems Review of Systems: A complete 12 point review of systems was performed and are negative if not noted in HPI. [facility] Medical History (Updated 02/08/23 @ 21:38 by NEVAEH Lau) Essential hypertension Hypothyroidism Ulcerative colitis Family History Mother Ovarian cancer, Onset Age: 85 Maternal Grandmother CVD (cardiovascular disease) Sister Diabetes Father [place] disease Tuberculosis Surgical History History of section History of cholecystectomy Social History (Updated 01/01/22 @ 15:26 by MOIZ Godinez) Housing: House Alcohol intake: current Alcohol intake frequency: holidays/special occasions only Patient Tobacco Use Status: Former Tobacco user e-Cigarette/Vaping Use: Never Used Second Hand Smoke Exposure: No Advance Directives: Yes Advance Directives Information Provided: No Advance Directives on File: No service: No Current occupational status: employed Current occupation: [employer] Cognitive needs: No Hearing needs: No Vision needs: Yes (glasses) Meds Allergies Allergy/AdvReac Type Severity Reaction Status Date / Time lisinopril Allergy Mild Cough Verified 01/01/22 15:49 Active Medications: Current Medications Acetaminophen (Acetaminophen 325 Mg Tablet) 650 mg PO Q6H PRN PRN Reason: FEVER, Pain,(Pain Scale 1-3) Aspirin (Aspirin 81 Mg Tab.Chew) 81 mg PO DAILY [facility] Docusate Sodium (Docusate Sodium 100 Mg Capsule) 100 mg PO BID [facility] Enoxaparin Sodium (Enoxaparin Sodium 40 Mg/0.4 Ml Syringe) 40 mg SUBCUT Q24H [facility] Last Admin: 02/08/23 21:22 Dose: 40 mg Ondansetron HCl (Ondansetron Hcl 4 Mg/2 Ml Vial) 4 mg IVPUSH Q8H PRN PRN Reason: Nausea and Vomiting Pharmacy Consult (Consult Rx Perform Med Rec) 1 each MISCELLANE ONCE PRN PRN Reason: Consult order Senna (Sennosides 8.6 Mg Tablet) 17.2 mg PO BEDTIME PRN PRN Reason: Constipation Sodium Chloride (0.9 % Sodium Chloride Flush 3 Ml Syringe) 3 ml IVFLUSH QSHIFT [facility] Physical Exam Vital Signs and Narrative: Vital Signs: Last Vital Signs Temp 98.1 F 02/08/23 13:50 Pulse 70 02/08/23 21:28 Resp 17 02/08/23 21:28 BP 148/78 H 02/08/23 21:28 Pulse Ox 94 02/08/23 21:28 O2 Del Method Room Air 02/08/23 21:28 BMI result Body Mass Index 35.2 Const: Other: General: Appears stated age, in no acute distress, answers questions accurately and appropriately. Skin: Warm and well perfused, no obvious lesions, bruises, open wounds or sores Cardiology: Regular rate and rhythm, no murmurs, rubs, gallops or clicks, no JVD or carotid bruits appreciated Respiratory: Lungs CTAB, no inspiratory wheezing, rales or rhonchi, no increased accessory muscle use noted Abdomen: Soft, rounded, nondistended, nontender, bowel sounds active in all 4 quadrants, no abdominal guarding or Linden sign Extremity: No pitting edema noted, no redness, tenderness or swelling noted to bilateral lower extremities. Neuro: Alert and oriented x3, no obvious focal deficits Psych: Calm, appropriate, follows commands, no agitation restlessness noted Results Labs 02/08/23 14:01 02/08/23 14:01 Labs: Laboratory Results - last 24 hr 02/08/23 02/08/23 02/08/23 14:01 14:01 14:01 MCV 90.5 MCH 30.2 MCHC 33.3 RDW 11.9 Plt Count 356 MPV 9.5 Immature Gran % (Auto) 0.2 Neut % (Auto) 58.1 Lymph % (Auto) 27.7 Jones % (Auto) 7.5 Eos % (Auto) 5.9 H Baso % (Auto) 0.6 Lymph # (Auto) 2.7 Jones # (Auto) 0.7 Eos # (Auto) 0.6 H Baso # (Auto) 0.1 Abs Immat Gran (auto) 0.02 Absolute Neuts (auto) 5.7 Absolute Nucleated RBC 0.000 Nucleated RBC % (auto) 0.0 Anion Gap 14 Estim Creat Clear Calc 76.6 Estimated GFR > 60 Random Glucose 131 H Calcium 9.4 Magnesium 1.9 Total Bilirubin 0.4 Direct Bilirubin 0.1 AST 20 ALT 27 Alkaline Phosphatase 73 Troponin I High Sens 3.2 B-Natriuretic Peptide Total Protein 7.1 Albumin 4.3 Lipase 23 TSH 0.07 L Free T4 1.45 02/08/23 02/08/23 14:01 18:17 MCV MCH MCHC RDW Plt Count MPV Immature Gran % (Auto) Neut % (Auto) Lymph % (Auto) Jones % (Auto) Eos % (Auto) Baso % (Auto) Lymph # (Auto) Jones # (Auto) Eos # (Auto) Baso # (Auto) Abs Immat Gran (auto) Absolute Neuts (auto) Absolute Nucleated RBC Nucleated RBC % (auto) Anion Gap Estim Creat Clear Calc Estimated GFR Random Glucose Calcium Magnesium Total Bilirubin Direct Bilirubin AST ALT Alkaline Phosphatase Troponin I High Sens < 2.7 B-Natriuretic Peptide 16 Total Protein Albumin Lipase TSH Free T4 Imaging Radiologist's Impressions: Impressions Chest X-Ray 02/08/23 14:47 IMPRESSION: Unremarkable examination. Chest CTA 02/08/23 19:30 IMPRESSION: No evidence of PE. No evidence of aortic dissection or aneurysm. The lungs are clear. VTE: negative Assessment and Plan (1) Stable angina: Status: Acute (2) Palpitation: Status: Acute (3) CLARK (dyspnea on exertion): Status: Acute Plan This is a 62-year-old female with a past medical history significant for hypertension, anxiety/depression, hypothyroidism, ulcerative colitis will be admitted to the hospital for stable angina, dyspnea on exertion and palpitations. ACUTE MEDICAL ISSUES: Stable angina Dyspnea on exertion Palpitations -Patient denies a cardiac history or ever having stress test/performed. -Chest x-ray: Unremarkable examination -chest CT with/without:No evidence of PE. No evidence of aortic dissection or aneurysm. The lungs are clear. VTE: negative -EKG: NSR, inferior infarct with nonspecific T-wave abnormality noted -Troponin I high sensitivity x2 <3 -Monitor patient on telemetry, cervical mass/chest pain-EKG to be obtained so -Patient to be made NPO at midnight for stress test in a.m.. CHRONIC MEDICAL ISSUES: Hypertension -Antihypertensives continue with holding parameters. Monitor blood pressures/heart rate. Hypothyroidism -Levothyroxine continued. Ulcerative colitis -Controlled. Patient denies flare-up for over 30 years. Mesalamine continued. OTHER: DVT prophylaxis -Lovenox. Intermittent sequential boots. Patient is a full code HCP/person to contact is patient's Tavares Morales, Time Spent With Patient Time: Total time managing care of this patient today ____ minutes. Quality Stroke Does the patient have a stroke diagnosis?: No VTE Prior VTE?: No VTE Risk Level:: Medical - moderate - high VTE Device Contraindication: N/A - Device Ordered VTE Drug Contraindication: N/A - Med Ordered
[2023-02-08 22:00] LABS: COVID-19 Test Negative (Negative); IDNOW Serial# 9DB6401D
[2023-02-08 22:36] VITALS: BP 123/64; PULSE 69; RESP 16; TEMP 37; O2SAT 93
[2023-02-09] VITALS: BP 141/65; PULSE 68; RESP 20; TEMP 37; O2SAT 97
[2023-02-09] MEDS: 0.9 % Sodium Chloride Flush 3 ML SYRINGE IVFLUSH ×2 (01:15→10:28)
[2023-02-09 04:00] VITALS: BP 130/61; PULSE 68; RESP 18; TEMP 36.9; O2SAT 96
[2023-02-09 07:49] VITALS: BP 134/69; PULSE 79; RESP 20; TEMP 36.8; O2SAT 96
--- NOTE | 2023-02-09 08:45 | PHA.MEDREC ---
Pharmacy Consult ? Medication Reconciliation Pharmacy has completed the medication reconciliation. Pt had written list from home, picture sent by nurse Novak to pharmacy for med rec
--- NOTE | 2023-02-09 09:07 | CA_ITS ---
Transthoracic Echocardiogram Patient (Last, First, Middle): Vianey Morales, Gender: Female Date of : 1960 Age: 62 Procedure Date: 02/09/2023 Procedure Type: Transthoracic Echocardiogram Location: [facility] [place] Height: 152.4 cm Weight: 81.65 kg BSA: 1.78 m2 Heart Rate: 66 bpm BP: 138 / 69 mmHg Machine Design Checker: SB Referring MD: Luz Vang MD Symptoms: Dyspnea, Pending discharge. Study Quality: Adequate w contrast ECG Rhythm: Sinus Conclusions: - The left ventricular systolic function is normal. The visually estimated ejection fraction is between 65-70%. - There is no evidence of regional wall motion abnormalities. - No obvious valvular pathology seen on this study. Findings Procedure Information Contrast agent, definity, is being given per protocol without apparent complications. Left Ventricle Normal left ventricular cavity size. There is normal left ventricular wall thickness. The left ventricular systolic function is normal. The visually estimated ejection fraction is between 65-70%. There is no evidence of regional wall motion abnormalities. Diastolic function is normal for age. E/E prime ratio is <8, consistent with normal filling pressures. Right Ventricle Normal right ventricular cavity size. There is low normal right ventricular systolic function. Atria Both atria are normal in size. Aortic Valve There is a normal trileaflet aortic valve. There is no aortic valve stenosis. There is trace (trivial) aortic valve regurgitation. Mitral Valve The mitral valve appears normal. There is mild anterior mitral leaflet thickening. There is no mitral valve regurgitation. There is no mitral valve stenosis. Pulmonic Valve The pulmonic valve is likely normal. Tricuspid Valve There is no tricuspid valve regurgitation. Tricuspid regurgitation envelope is inadequate for calculation of right ventricular systolic pressure. Great Vessels The asc aorta is normal in size. Venous The inferior vena cava was not well visualized. Pericardium/Pleural There is a trivial pericardial effusion. Prior Study Comparison No prior study available for comparison. Recommendations, Care & Conclusions No obvious valvular pathology seen on this study. Measurements 2D Linear Measurements IVSd: 0.83 0.6-0.9/0.6-1.0 cm LVIDd: 4.42 3.9-5.3/4.2-5.9 cm LVIDd Index: 2.48 2.4-3.2/2.2-3.1 cm/m2 LVIDs: 2.80 2.0-3.6 cm LVPWd: 1.03 0.7-1.1 cm LA Diam: 3.00 2.7-3.8/3.0-4.0 cm LAIDs Index: 1.69 1.5-2.3 cm/m2 LV Mass: 167.16 67-162/88-224 g LV Mass Index: 93.91 43-95/49-115 g/m2 LVOT Diam: 2.00 3.0+(-)1.3 cm 2D Systolic Function EF 4C: 76.40 >55% EF 2C: 81.10 >55% EF BiP: 79.20 >55% Mitral Valve MV Pk E: 0.61 MV PK A: 0.65 MV Decel Time: 184.00 E/A: 0.90 E'Lateral: 7.94 E'Medial: 5.87 E/E' Med: 10.40 E/E' Lat: 7.70 PHT: 54.00 MVA PHT: 4.07 Decel Sheridan: 3.30 Aortic Valve AoV Pk Barrera: 1.32 AoV Pk Grad: 7.00 GUIDO: 2.52 LVOT LVOT Pk Barrera: 1.06 LVOT Mn Barrera: 0.72 LVOT VTI: 0.24 LVOT Pk Grad: 4.00 LVOT Mn Grad: 2.00 LVOT Diam: 2.00 LVOT Area: 3.14 Diastolic Function MV Pk E: 0.61 MV Pk A: 0.65 E/A: 0.90 E'Medial: 5.87 E/E' Med: 10.40 E' Laterial: 7.94 E/E' Lat: 7.70 Right Ventricle TAPSE (mm): 17.00 TVS' Barrera: 11.60 Tricuspid Valve RA Press: 3.00 Great Vessels Aorta Sinus of Valsalva: 2.90 2.0-3.5 cm Ao Asc: 2.70 2.1-3.4 cm Pulmonary Veins Pulm Vein S/D 1.60 Pulmonary Valve PV Pk Barrera: 0.92 Peak PV Grad: 3.00 Updated in Other Vendor System with Status of Final Brad Collier MD electronically signed on 02/09/2023 12:01:09 PM with status of Final
--- NOTE | 2023-02-09 10:08 | PM.CNCAR ---
History of Present Illness History of Present Illness Date of Service: 02/09/23 Chief complaint: Stable angina Narrative: This is a cardiology consultation regarding shortness of breath and possibility of anginal equivalent. Patient does not have any known cardiac issues. Apparently has prediabetes and hypertension-per patient. She states that she generally walks several miles a day and does not have any major issues. However, last few days she has been feeling short of breath with any form of activity. She also feels diaphoretic. No clear-cut anginal-type symptoms. No chest pain whatsoever. No jaw pain left arm pain. She also feels that her heart is pounding hard when she is walking. Because of this, she got admitted for further care. Review of Systems Review of Systems: Yes all other systems are reviewed and are negative Constitutional: Constitutional: Reports as per HPI and Reports no additional constitutional complaints Eyes: Eyes: Reports as per HPI and Denies no additional eye complaints ENT: Denies system reviewed and no additional complaints, except as documented and Reports as per HPI Cardiovascular: Cardiovascular: Reports as per HPI, Reports no additional cardiovascular complaints, Denies acrocyanosis, Denies cool extremities, Denies chest pain, Reports rapid heart rate, Denies leg edema, Denies lightheadedness, Reports palpitations and Reports dyspnea Respiratory: Respiratory: Reports as per HPI, Denies no additional respiratory complaints and Reports dyspnea Gastrointestinal: Gastrointestinal: Reports as per HPI and Denies no additional gastrointestinal complaints Genitourinary: Genitourinary: Reports as per HPI Musculoskeletal: Musculoskeletal: Reports no additional musculoskeletal complaints and Reports as per HPI Integumentary/Breasts: Skin/Breast: Reports system reviewed and no additional complaints, except as docu Neurologic: Reports system reviewed and no additional complaints, except as documented and Reports as per HPI Psychiatric: Psychiatric: Reports no additional psychiatric complaints and Reports as per HPI Endocrine: Endocrine: Reports no additional endocrine complaints, Reports as per HPI and Reports palpitations Hematologic/Lymphatic: Hematologic/Lymphatic: Reports no additional hematologic/lymphatic complaints and Reports as per HPI Allergic/Immunologic: Allergic/Immunologic: Reports no additional allergic/immunologic complaints and Reports as per HPI [facility] Past Medical History Medical History (Updated 02/09/23 @ 10:12 by Brad Collier MD) Essential hypertension Hypothyroidism Ulcerative colitis Family History Family History Mother Ovarian cancer, Onset Age: 85 Maternal Grandmother CVD (cardiovascular disease) Sister Diabetes Father John disease Tuberculosis Surgical History Surgical History History of section History of cholecystectomy Social History Social History (Updated 01/01/22 @ 15:26 by MOIZ Godinez) Housing: House Alcohol intake: current Alcohol intake frequency: holidays/special occasions only Patient Tobacco Use Status: Former Tobacco user e-Cigarette/Vaping Use: Never Used Second Hand Smoke Exposure: No Advance Directives Date on File: 02/09/23 service: No Current occupational status: employed Current occupation: [employer] Cognitive needs: No Hearing needs: No Vision needs: Yes (glasses) Meds Allergies Allergy/AdvReac Type Severity Reaction Status Date / Time lisinopril Allergy Mild Cough Verified 01/01/22 15:49 Active Medications: Current Medications Acetaminophen (Acetaminophen 325 Mg Tablet) 650 mg PO Q6H PRN PRN Reason: FEVER, Pain,(Pain Scale 1-3) Aspirin (Aspirin 81 Mg Tab.Chew) 81 mg PO DAILY [facility] Atorvastatin Calcium (Atorvastatin Calcium 10 Mg Tablet) 10 mg PO BEDTIME [facility] Docusate Sodium (Docusate Sodium 100 Mg Capsule) 100 mg PO BID [facility] Enoxaparin Sodium (Enoxaparin Sodium 40 Mg/0.4 Ml Syringe) 40 mg SUBCUT Q24H [facility] Last Admin: 02/08/23 21:22 Dose: 40 mg Fluticasone Propionate (Fluticasone Propionate 100 Mcg Blst.W.Dev) 2 puff INHALE RBID [facility] Hydrochlorothiazide (Hydrochlorothiazide 25 Mg Tablet) 25 mg PO DAILY [facility]; Protocol Levothyroxine Sodium (Levothyroxine Sodium 125 Mcg Tablet) 125 mcg PO DAILY@0600 [facility] Metformin HCl (Metformin Hcl 500 Mg Tablet) 500 mg PO BID [facility] Metoprolol Succinate (Metoprolol Succinate Er 50 Mg Tab.Er.24h) 50 mg PO DAILY [facility]; Protocol Multivitamins/Vitamin C (Multivitamin Tablet) 1 tab PO DAILY [facility] Multivitamins/Vitamin C (Multivitamin Tablet) 1 tab PO DAILY [facility] Ondansetron HCl (Ondansetron Hcl 4 Mg/2 Ml Vial) 4 mg IVPUSH Q8H PRN PRN Reason: Nausea and Vomiting Pharmacy Consult (Consult Rx Perform Med Rec) 1 each MISCELLANE ONCE PRN PRN Reason: Consult order Senna (Sennosides 8.6 Mg Tablet) 17.2 mg PO BEDTIME PRN PRN Reason: Constipation Sodium Chloride (0.9 % Sodium Chloride Flush 3 Ml Syringe) 3 ml IVFLUSH QSHIFT [facility] Last Admin: 02/09/23 01:15 Dose: 3 ml Venlafaxine HCl (Venlafaxine Hcl Er 150 Mg Cap.Er.24h) 150 mg PO DAILY [facility] Home Medications Medication Instructions Recorded Confirmed Last Taken Type fluticasone propionate 110 2 puff inhalation BID 02/09/23 02/09/23 Unknown History mcg/actuation HFA aerosol inhaler (Flovent HFA) levothyroxine 125 mcg tablet 125 mcg PO DAILY@0600 02/09/23 02/09/23 Unknown History metformin 500 mg tablet 500 mg PO BID 02/09/23 02/09/23 Unknown History metoprolol succinate 50 mg 50 mg PO DAILY 02/09/23 02/09/23 Unknown History tablet,extended release 24 hr multivitamin 1 tab PO DAILY 02/09/23 02/09/23 Unknown History simvastatin 20 mg tablet 20 mg PO BEDTIME 02/09/23 02/09/23 Unknown History Physical Exam Vital Signs: Vital Signs: Last Vital Signs Temp 98.3 F 02/09/23 07:49 Pulse 79 02/09/23 07:49 Resp 20 02/09/23 07:49 BP 134/69 02/09/23 07:49 Pulse Ox 96 02/09/23 07:49 O2 Del Method Room Air 02/09/23 07:49 BMI result Body Mass Index 35.2 Const: General: comfortable and no acute distress Orientation/consciousness: patient oriented x3 HEENT: Other: Unremarkable Head: Yes normal to inspection Neck: Neck: Yes normal visual inspection Chest: Chest palpation & inspection: normal inspection of the chest Resp: Auscultation: clear to auscultation bilaterally Cardio: Palpation: normal PMI Heart sounds: S1 normal heart sound present, S2 normal heart sound present, no gallops, no murmurs and no rubs GI: Palpation (GI): Soft to palpation Back/Spine/Pelvis: Other: unremarkable Skin: General skin exam: no rashes or lesions noted Neuro: General: patient oriented x3 Extrem: General: Yes normal to inspection Psych: Mental Status: mental status grossly normal Objective Labs and Meds 02/08/23 14:01 02/08/23 14:01 Lab results: Laboratory Results - last 24 hr 02/08/23 02/08/23 02/08/23 14:01 14:01 14:01 WBC 9.8 RBC 4.54 Hgb 13.7 Hct 41.1 MCV 90.5 MCH 30.2 MCHC 33.3 RDW 11.9 Plt Count 356 MPV 9.5 Immature Gran % (Auto) 0.2 Neut % (Auto) 58.1 Lymph % (Auto) 27.7 Haines % (Auto) 7.5 Eos % (Auto) 5.9 H Baso % (Auto) 0.6 Lymph # (Auto) 2.7 Haines # (Auto) 0.7 Eos # (Auto) 0.6 H Baso # (Auto) 0.1 Abs Immat Gran (auto) 0.02 Absolute Neuts (auto) 5.7 Absolute Nucleated RBC 0.000 Nucleated RBC % (auto) 0.0 Sodium 142 Potassium 3.3 Chloride 102 Carbon Dioxide 29 Anion Gap 14 BUN 14 Creatinine 0.73 Estim Creat Clear Calc 76.6 Estimated GFR > 60 Random Glucose 131 H Calcium 9.4 Magnesium 1.9 Total Bilirubin 0.4 Direct Bilirubin 0.1 AST 20 ALT 27 Alkaline Phosphatase 73 Troponin I High Sens 3.2 B-Natriuretic Peptide Total Protein 7.1 Albumin 4.3 Lipase 23 TSH 0.07 L Free T4 1.45 COVID-19 ([facility]) COVID-19 Clin Com 02/08/23 02/08/23 02/08/23 14:01 18:17 21:25 WBC RBC Hgb Hct MCV MCH MCHC RDW Plt Count MPV Immature Gran % (Auto) Neut % (Auto) Lymph % (Auto) Haines % (Auto) Eos % (Auto) Baso % (Auto) Lymph # (Auto) Haines # (Auto) Eos # (Auto) Baso # (Auto) Abs Immat Gran (auto) Absolute Neuts (auto) Absolute Nucleated RBC Nucleated RBC % (auto) Sodium Potassium Chloride Carbon Dioxide Anion Gap BUN Creatinine Estim Creat Clear Calc Estimated GFR Random Glucose Calcium Magnesium Total Bilirubin Direct Bilirubin AST ALT Alkaline Phosphatase Troponin I High Sens < 2.7 B-Natriuretic Peptide 16 Total Protein Albumin Lipase TSH Free T4 COVID-19 ([facility]) Negative COVID-19 Clin Com See Note ECG Interpretation: EKG shows sinus rhythm at 90/Min; possible old inferior infarct. Voltage criteria for LVH. Nonspecific ST-T changes in anterior leads. Slightly different compared to last year's EKG. Imaging Radiologist's impression: Impressions Chest X-Ray 02/08/23 14:47 IMPRESSION: Unremarkable examination. Chest CTA 02/08/23 19:30 IMPRESSION: No evidence of PE. No evidence of aortic dissection or aneurysm. The lungs are clear. VTE: negative Assessment and Plan (1) SOB (shortness of breath): Status: Acute (2) Palpitation: Status: Acute (3) Essential hypertension: Status: Acute Plan Recent onset symptoms of shortness of breath, diaphoresis, heart racing. However, biomarkers are unremarkable. High sensitivity troponins are within normal limits. Cardiac BNP is also well within normal limits. We will get an echocardiogram. If this is within normal limits, then potentially outpatient stress testing or coronary CTA. We do not have a nurse practitioner available this week for any inpatient workup. Discussed with Dr. Vang. Time Spent With Patient Time: Total time managing care of this patient today 75 minutes. This includes time spent in review of chart, laboratory data, imaging studies, review of telemetry, counseling patient, discussion with hospitalist, RN, documentation, coordination of care. Procedures Date of Service Date of Service: 02/09/23
[2023-02-09] MEDS: hydroCHLOROthiazide 25 MG TABLET PO (10:17)
[2023-02-09] MEDS: Docusate Sodium 100 MG CAPSULE PO (10:17)
[2023-02-09] MEDS: Venlafaxine HCl ER 150 MG CAP.ER.24H PO (10:17)
[2023-02-09] MEDS: Aspirin 81 MG TAB.CHEW PO (10:17)
[2023-02-09] MEDS: Levothyroxine Sodium 125 MCG TABLET PO (10:17)
[2023-02-09] MEDS: Metoprolol Succinate ER 50 MG TAB.ER.24H PO (10:18)
[2023-02-09] MEDS: Multivitamin TABLET 1 TAB PO ×2 (10:19→13:36)
[2023-02-09 11:31] VITALS: BP 131/69; PULSE 76; RESP 20; TEMP 36.3; O2SAT 98
--- NOTE | 2023-02-09 13:29 | P.DS_ITS ---
DS: Providers Provider Date of Service: 02/09/23 Date of admission: 02/08/23 22:06 Primary care physician: Unknown Physician Consults: 02/08/23 21:08 Consult to Cardiology Routine Consulting Provider: [facility] Cardiovascular Services Reason for consultation: Stable angina- stress test Has provider been notified: Yes DS: Diagnosis Discharge Diagnosis (1) SOB (shortness of breath): Status: Acute (2) Palpitation: Status: Acute (3) Essential hypertension: Status: Acute DS: Summary Hospital Course Hospital Course: Admission note HPI This is a 62-year-old female with a past medical history as noted below who presented to the emergency department with complaints of shortness of breath on exertion ongoing for the past week however worse over the past 3 days.? Patient reports that she is usually able to go on daily walks with her however over the past 3 days she is having difficulty even getting up the stairs.? She reports that she ?sweats profusely and feels that her heart is racing?.? At current time, patient is denying chest pain, palpitations or shortness of breath at rest. Chest x-ray:? Unremarkable examination Chest CT with/without:No evidence of PE. No evidence of aortic dissection or aneurysm. The lungs are clear. VTE: negative Initial laboratory results:? Unremarkable CBC with diff and CMP with the exception of a random glucose 131, TSH 0.07.? Free T4 1.45. In the emergency department the above was performed.?The decision made to admit patient for medical management. Hospital course Monitored on telemetry with no abnormal rhythm. Trop twice checked and negative. normal BNP. normal ECHO. seen by inspector outside steam distribution who recommended outpatient follow up for Stress testing and further work up. Start baby Aspirin until you follow with cardiology To follow with dr Collier from Cardiology for further work up Time Spent with Patient Time attestation: Total time managing care of this patient today ____ minutes. Discharge coordination time: Less than 30 minutes Quality: Safe Use of Opioids Does Pt have an Active Cancer Diagnosis on the Problem List?: No Quality: Stroke Does the patient have a stroke diagnosis?: No Physical Exam Vital Signs: Vital Signs: Last Vital Signs Temp 97.3 F 02/09/23 11:31 Pulse 76 02/09/23 11:31 Resp 20 02/09/23 11:31 BP 131/69 02/09/23 11:31 Pulse Ox 98 02/09/23 11:31 O2 Del Method Room Air 02/09/23 11:31 BMI result Body Mass Index 35.2 Const: Other: Constitutional : Awake, interactive, not in distress Neck : Normal inspection, Supple Cardiovascular : RRR, no JVP, no lower extremity edema Respiratory : good bilateral air entry, no crackles, wheezes or rhonchi Gastrointestinal: soft, lax, Normal bowel sounds, Non tender Skin : Warm, Dry Neurological : Alert & oriented x3, No focal deficit DS: Data Data Completed and Pending Labs on day of discharge: Laboratory Results - last 24 hr 02/08/23 02/08/23 02/08/23 14:01 14:01 14:01 WBC 9.8 RBC 4.54 Hgb 13.7 Hct 41.1 MCV 90.5 MCH 30.2 MCHC 33.3 RDW 11.9 Plt Count 356 MPV 9.5 Immature Gran % (Auto) 0.2 Neut % (Auto) 58.1 Lymph % (Auto) 27.7 [place] % (Auto) 7.5 Eos % (Auto) 5.9 H Baso % (Auto) 0.6 Lymph # (Auto) 2.7 [place] # (Auto) 0.7 Eos # (Auto) 0.6 H Baso # (Auto) 0.1 Abs Immat Gran (auto) 0.02 Absolute Neuts (auto) 5.7 Absolute Nucleated RBC 0.000 Nucleated RBC % (auto) 0.0 Sodium 142 Potassium 3.3 Chloride 102 Carbon Dioxide 29 Anion Gap 14 BUN 14 Creatinine 0.73 Estim Creat Clear Calc 76.6 Estimated GFR > 60 Random Glucose 131 H Calcium 9.4 Magnesium 1.9 Total Bilirubin 0.4 Direct Bilirubin 0.1 AST 20 ALT 27 Alkaline Phosphatase 73 Troponin I High Sens 3.2 B-Natriuretic Peptide Total Protein 7.1 Albumin 4.3 Lipase 23 TSH 0.07 L Free T4 1.45 COVID-19 (SARAH BETH) COVID-19 Clin Com 02/08/23 02/08/23 02/08/23 14:01 18:17 21:25 WBC RBC Hgb Hct MCV MCH MCHC RDW Plt Count MPV Immature Gran % (Auto) Neut % (Auto) Lymph % (Auto) [place] % (Auto) Eos % (Auto) Baso % (Auto) Lymph # (Auto) [place] # (Auto) Eos # (Auto) Baso # (Auto) Abs Immat Gran (auto) Absolute Neuts (auto) Absolute Nucleated RBC Nucleated RBC % (auto) Sodium Potassium Chloride Carbon Dioxide Anion Gap BUN Creatinine Estim Creat Clear Calc Estimated GFR Random Glucose Calcium Magnesium Total Bilirubin Direct Bilirubin AST ALT Alkaline Phosphatase Troponin I High Sens < 2.7 B-Natriuretic Peptide 16 Total Protein Albumin Lipase TSH Free T4 COVID-19 (SARAH BETH) Negative COVID-19 Clin Com See Note Imaging Chest x-ray: Radiologist's impression: ITS Impressions Chest X-Ray 02/08/23 14:47 IMPRESSION: Unremarkable examination. Chest CTA 02/08/23 19:30 IMPRESSION: No evidence of PE. No evidence of aortic dissection or aneurysm. The lungs are clear. VTE: negative Discharge Plan Discharge Patient Disposition: Home, Self-Care Discharge Diagnosis: Dyspnea on exertion Referrals: Physician,Unknown J [Primary Care Provider] - 1 Week Discharge Medications: New aspirin 81 mg Tablet,Chewable 81 mg PO DAILY 30 Days Qty: 30 0RF Continued venlafaxine 150 mg capsule,extended release 24hr 150 mg PO DAILY Qty: 90 0RF simvastatin 20 mg tablet 20 mg PO BEDTIME fluticasone propionate [Flovent HFA] 110 mcg/actuation HFA aerosol inhaler 2 puff INHALATION BID metoprolol succinate 50 mg tablet extended release 24 hr 50 mg PO DAILY multivitamin Tablet 1 tab PO DAILY levothyroxine 125 mcg tablet 125 mcg PO DAILY@0600 metformin 500 mg tablet 500 mg PO BID hydrochlorothiazide 25 mg tablet 25 mg PO DAILY Qty: 90 0RF vitamin B complex Tablet 1 tab PO DAILY Qty: 90 0RF Discharge Orders: Discharge Order (Routine); Ordered 02/09/23 Ordered By: Luz Vang Diet: Low fat, low cholesterol Activity on Discharge: As tolerated Stand Alone Forms: Patient Portal Discharge page Care Plan Goals: Read below Health Concerns: Read below Plan of Treatment: Read below Assessment: You were admitted for evaluation of difficulties breathing and palpitations. monitored on telemetry with no abnormal heart rhythm. heart enzymes were within normal. An echo was done showing normal heart function. you were evaluated by inspector outside steam distribution who recommended outpatient follow up for stress testing and further work up. Start baby Aspirin until you follow with cardiology To follow with dr Collier from Cardiology for further work up
== END 2023-02-09 14:25 | disposition home or self-care (01) ==
LOC: HO.ED 20:27 → HO.EDOVER 22:37 → HO.IMC 23:41
PROVIDERS: Physician Assistant; Admitting Provider Registered Nurse; Emergency Provider Emergency Medicine; Visit Provider Student in an Organized Health Care Education/Training Program
DX: R06.00 Dyspnea, unspecified (principal); R00.2 Palpitations; R61 Generalized hyperhidrosis; R06.02 Shortness of breath; I20.8 Other forms of angina pectoris; I10 Essential (primary) hypertension; E03.9 Hypothyroidism, unspecified; K51.90 Ulcerative colitis, unspecified, without complications
CPT/HCPCS: 36415; 71046; 71275; 80048; 80076; 83690; 83735; 83880; 84439; 84443; 84484; 85025; 87635; 93005; 93306; 96372; 99222; 99285; J1650; Q9957; Q9967

== ENCOUNTER → 2023-04-30 13:34 | Outpatient (BNVA) | payer BC, SELFPAY | PROVIDERS: Visit Provider Nurse Practitioner Family ==

== ENCOUNTER 2024-07-14 09:48 | Outpatient (AMB) | payer BC, SELFPAY ==
--- NOTE | 2024-07-14 10:11 | A.OFFPC_ITS ---
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: AIRCRAFT MAINTENANCE SUPERVISOR and med PA for mounjaro Is last menstrual period known: No Post menopausal: Yes Patient : No Allergies lisinopril Allergy (Mild, Verified 07/14/24 10:12) Cough Medication List - Last Reconciled 07/14/24 by Jasper Gamez MD fluticasone propionate 110 mcg/actuation (Flovent HFA) 2 puffs inhalation BID hydrochlorothiazide 25 mg PO DAILY levothyroxine 100 mcg PO DAILY@0600 multivitamin 1 tab PO DAILY tirzepatide (Mounjaro) 15 mg subcut ONCE vitamin B complex 1 tab PO DAILY Tobacco use date assessed: 07/14/24 Dental Screening Dental Screen Date: 07/14/24 Did you have a dental visit in the last 12 months?: Yes Did you have a dental problem in the last 6 months where you did not have access to dental care?: No Was dental information given to patient?: Patient has dentist HPI AIRCRAFT MAINTENANCE SUPERVISOR-med f/u HPI Details New Patient? ?? Prior PCP:? Karson Watt Last office visit/CPE:? Nov/December for CPE Acute issue(s):? Establish care ?? PMHx:? Hypothyroidism, Kidney stones, Reactive Airways and seasonal Allergies. SurgHx:? GB, Jaw surgery. FHx:? Mom: Ovarian CA, SocHx:? Quit cigs in 20s. EtOH Occassional about 2 dr limit. No drugs HPI Comments History of Present Illness Details Documentation assistance for Jasper Gamez MD, was provided by Urban Dewey,? Dowel Maker on 07/14/2024 at 10:39 AM EST. I, Dr. Gamez, have read, observed, and verified documentation. [facility] Medical History CLARK (dyspnea on exertion) Essential hypertension Hypothyroidism Palpitation Stable angina Ulcerative colitis Surgical History History of section History of cholecystectomy Family History Mother Ovarian cancer, Onset Age: 85 Maternal Grandmother CVD (cardiovascular disease) Sister Diabetes Father Lewis disease Tuberculosis Social History (Updated 07/14/24 @ 10:16 by Edison Pozo MA) Housing: House Alcohol intake: current Alcohol intake frequency: holidays/special occasions only Patient Tobacco Use Status: Former Tobacco user e-Cigarette/Vaping Use: Never Used Second Hand Smoke Exposure: No Use of substances other than those prescribed or required for medical reasons: Yes Substance Use Type: Marijuana Advance Directives Date on File: 02/09/23 Patient : No service: No Current occupational status: employed Current occupation: [employer] Cognitive needs: No Hearing needs: No Vision needs: Yes (glasses) Questionnaire PHQ-9 Over the last 2 weeks, how often have you been bothered by any of the following problems? 1. Little interest or pleasure in doing things: not at all 2. Feeling down, depressed, or hopeless: not at all 3. Trouble falling or staying asleep, or sleeping too much: not at all 4. Feeling tired or having little energy: not at all 5. Poor appetite or overeating: not at all 6. Feeling bad about yourself - or that you are a failure or have let yourself or your family down: not at all 7. Trouble concentrating on things, such as reading the newspaper or watching television: not at all 8. Moving or speaking so slowly that other people could have noticed. Or the opposite - being so fidgety or restless that you have been moving around a lot more than usual: not at all 9. Thoughts that you would be better off or of hurting yourself in some way: not at all Total score: 0 Depression Screening Interpretation: Negative Depression Screening Done: Yes 76841 - PHQ-9 Billing: Yes Source: Developed by Drs. Anoop Johnson, Briana Dunbar, Darrick Wallace and colleagues, with an educational jenny from [employer]. Thrive Questionnaire Date Thrive assessed: 07/14/24 I am a: Patient What is your living situation today?: I have a steady place to live Within the past 12 months, did the food you bought not last and you didn't have the money to get more?: Never true Within the past 12 months, did you worry whether your food would run out before you got money to buy more?: Never true Do you have trouble paying for medicines?: No Do you have trouble getting transportation to medical appointments?: No Do you have trouble paying your heating and electricity bill?: No Do you have trouble taking care of your child, family member or friend?: No Do you have trouble with day-to-day activities such as bathing, preparing meals, shopping, managing finances, etc.?: No Are you currently unemployed and looking for a job?: No Are you interested in more education?: No Please select the resources that you would like help with: None Currently or been in a relationship where the following occur: No concerns reported THRIVE Score: 0 AUDIT C Alcohol Use Questionnaire (AUDIT-C) 1. How often do you have a drink containing alcohol?: Monthly or less 2. How many drinks containing alcohol do you have on a typical day when you are drinking?: 1 or 2 3. How often do you have six or more drinks on one occasion?: Never Total Score: 1 CARLEE-7 AMB Questionnaire CARLEE-7 Date CARLEE - 7 assessed: 07/14/24 Feeling nervous, anxious, or on edge: 0 = Not at all Not being able to stop or control worryin = Not at all Worrying too much about different things: 0 = Not at all Trouble relaxin = Not at all Being so restless that it is hard to sit still: 0 = Not at all Becoming easily annoyed or irritable: 0 = Not at all Feeling afraid as if something awful might happen: 0 = Not at all Total CARLEE-7 score (0-4 normal; 5-9 mild; 10-14 moderate; 15-21 severe): 0 Source: Developed by Drs. Anoop Johnson, Briana Dunbar, Darrick Wallace and colleagues, with an educational jenny from [employer]. CARLEE-7 Assessment Billing CARLEE-7 Assessment Tool: CARLEE-7 Assessment 89129 Review of Systems Const Denies chills, Denies fatigue, Denies fever(s), Denies headache(s) and Denies weakness ENT Denies dizziness and Denies headache(s) Card Denies chest pain, Denies lightheadedness, Denies dyspnea and Denies other (Palpitations) Resp Denies cough, Denies dyspnea, Denies wheezing and Denies other ( shortness of breath) Musc Denies numbness and Denies tingling Neuro Denies dizziness, Denies headache(s), Denies numbness, Denies tingling, Denies paresthesias and Denies weakness Psych Denies anxiety and Denies depression Endo Denies fatigue Aller/Immun Denies wheezing Physical exam (Primary Care) Vital Signs: Last Vital Signs Temp 98.2 F 07/14/24 10:19 Pulse 84 07/14/24 10:19 Resp 16 07/14/24 10:19 BP 100/70 07/14/24 10:19 Pulse Ox 98 07/14/24 10:19 Oxygen Delivery Method Room Air 07/14/24 10:19 BMI result Body Mass Index 27.0 Tobacco/Smoking Status: Tobacco use Status Tobacco use date assessed 07/14/24 07/14/24 10:22 Patient Tobacco Use Status Former Tobacco user 07/14/24 10:22 e-Cigarette/Vaping Use Never Used 07/14/24 10:22 PHQ-9: PHQ-9 Score PHQ-9: Total score 0 07/14/24 10:25 Depression Screening Interpretation: Negative Thrive Assessment: Date of Thrive Assessment Date Thrive assessed 07/14/24 07/14/24 10:22 Currently or been in a relationship where the following occur: No concerns reported Const General: no acute distress and well developed Nutritional Appearance: well nourished Orientation/consciousness: patient oriented x3 [facility] Head: Yes normocephalic and Yes atraumatic Eyes General: appearance normal, both eyes and all related structures Pupils: Equal, round and reactive pupils present EOM: EOMs intact bilaterally Resp Effort & Inspection: normal respiratory effort Auscultation: clear to auscultation bilaterally Cardio Rate: regular rate Rhythm: regular rhythm Heart sounds: S1 normal heart sound present, S2 normal heart sound present, no gallops, no murmurs and no rubs Neuro General: patient oriented x3 and gait normal Cranial nerves: Yes Equal, round and reactive pupils present Psych Affect: normal affect Assessment and Plan Assessment & Plan (1) Essential hypertension: Code(s): I10 - Essential (primary) hypertension Plan: Blood?pressure?is?controlled.??Goal?is?less?than?140/90 Continue?current?medication (2) Hypothyroidism: Code(s): E03.9 - Hypothyroidism, unspecified Plan: Patient?takes?levothyroxine. Will?check?thyroid?hormone?levels (3) Reactive airway disease: Code(s): J45.909 - Unspecified asthma, uncomplicated Plan: Uses?Flovent?as?needed She?will?let?me?know?if?she?is?symptomatic (4) Seasonal allergies: Code(s): J30.2 - Other seasonal allergic rhinitis Plan: She?will?let?me?know?if?she?has?symptoms (5) Laboratory exam ordered as part of routine general medical examination: Code(s): Z00.00 - Encounter for general adult medical examination without abnormal findings Plan: 63-year-old?female?presents?as?new?patient. She?will?get?labs?drawn?and?we?can?follow-up?at?her?next?visit Orders: Orders Complete Blood Count Auto Diff Today Z00.00 - Encounter for general adult medical examination without abnormal findings UA and rflx microscopic Today Z00.00 - Encounter for general adult medical examination without abnormal findings Free T4 (Free Thyroxine) Today E03.9 - Hypothyroidism, unspecified Comprehensive Lizella. Panel Fast Today Z00.00 - Encounter for general adult medical examination without abnormal findings Microalbumin, Random (w Creat) Today I10 - Essential (primary) hypertension Lipid Panel Today Z00.00 - Encounter for general adult medical examination without abnormal findings Thyroid Stimulating Hormone Today E03.9 - Hypothyroidism, unspecified Triiodothyronine T3 Total Today E03.9 - Hypothyroidism, unspecified Vitamin B12 and Folate Today E53.8 - Deficiency of other specified B group vitamins Coding Level of Care Code New Pt Level 3 (60239) Diagnoses Essential hypertension I10 Hypothyroidism E03.9 Reactive airway disease J45.909 Seasonal allergies J30.2 Laboratory exam ordered as part of routine general medical examination Z00.00 Additional Codes CARLEE-7 Assessment Billing - CARLEE-7 Assessment Tool: CARLEE-7 Assessment [id number] ([id number])
[2024-07-14 10:19] VITALS: BP 100/70; PULSE 84; RESP 16; TEMP 36.8; O2SAT 98; BMI 27.0
== END 2024-07-14 10:50 | disposition home or self-care (01) ==
PROVIDERS: PCP Registered Nurse; Visit Provider Family Medicine
DX: I10 Essential (primary) hypertension (principal); E03.9 Hypothyroidism, unspecified; J45.909 Unspecified asthma, uncomplicated

== ENCOUNTER → 2024-07-14 09:48 | Outpatient (BNVA) | payer BC, SELFPAY | PROVIDERS: PCP Registered Nurse; Visit Provider Family Medicine | DX: I10 Essential (primary) hypertension (principal); E03.9 Hypothyroidism, unspecified; J45.909 Unspecified asthma, uncomplicated; J30.2 Other seasonal allergic rhinitis; Z79.899 Other long term (current) drug therapy | CPT/HCPCS: 96127 ==

== ENCOUNTER 2024-07-19 09:45 | Outpatient (REF) | payer BC, SELFPAY ==
[2024-07-19 11:20] LABS: Appearance Urine Clear; Color Urine Yellow; Glucose Urine UA Negative (Negative); Leukocyte Esterase Urine Trace (Negative); Nitrite Urine Negative (Negative); Specific Gravity - Urine <= 1.005 (1.005-1.025); UMIC TRIGGER UA YES; Urine Blood Negative (Negative); Urine Ketones Negative (Negative); Urine Protein Negative (Neg-Trace)
[2024-07-19 11:25] LABS: Basophils Absolute Auto 0.1 X10*3/uL (0.0-0.2); Eosinophils Absolute Auto 0.4 X10*3/uL (0.0-0.4); Eosinophils Percent Auto 5.3 % (0-4); Hemoglobin 13.6 g/dl (12.0-16.0); Imm Gran Abs Auto 0.02 X10*3/uL (0.00-0.03); Imm Gran Pct Auto 0.2 % (0.0-0.4); Lymphocytes Absolute Auto 2.1 X10*3/uL (1.2-4.9); Lymphocytes Percent Auto 25.8 % (20-40); MANUAL DIFF FLAG SCAN; Mean Corpuscular Hemoglobin 29.9 pg (27.0-33.0); Mean Corpuscular Volume 87.9 fL (80.0-98.0); Monocytes Absolute Auto 0.4 X10*3/uL (0.1-1.2); Monocytes Percent Auto 5.4 % (2-11); Neutrophils Absolute Auto 5.1 x10*3/uL (2.0-8.3); Neutrophils Percent Auto 62.3 % (45-73); PLT CLUMP 1; Red Blood Count 4.55 X10*6/uL (4.20-5.50); Red Cell Distribution Width 12.6 % (11.0-16.0); SCAN SMEAR FLAG 1
[2024-07-19 11:26] LABS: Bacteria Urine None Seen (None Seen); Hyaline Casts Urine 0-2 /LPF (0-2); RBC Urine 0-2 /HPF (0-2); Squamous Epithelial Cell Urine 0-2 /HPF (0-2); WBC Urine 0-5 /HPF (0-5)
[2024-07-19 11:45] LABS: Mean Platelet Volume 10.7 fL (9.4-12.3); Platelet Count 320 X10*3/uL (160-400); White Blood Count 8.1 X10*3/uL (4.8-10.8)
[2024-07-19 11:46] LABS: SLIDE REVIEW VERIFIED
[2024-07-19 12:05] LABS: Creatinine Urine 46.31 mg/dL; Microalbumin Urine < 5.0 mg/L
[2024-07-19 12:30] LABS: Folate 13.8 ng/mL (> or = 4.0); Vitamin B12 806 pg/mL (200-900)
[2024-07-19 12:38] LABS: Alanine Aminotransferase 17 U/L (0-31); Albumin Level 4.2 g/dL (3.5-5.0); Alkaline Phosphatase 68 U/L (39-117); Anion Gap 14 (12-20); Aspartate Amino Transferase 23 U/L (5-31); Bilirubin Total 0.7 mg/dL (0.0-1.0); Blood Urea Nitrogen 12 mg/dL (9-16); Calcium 9.5 mg/dL (8.4-10.2); Carbon Dioxide 29 mmol/L (22-29); Chloride 96 mmol/L (96-108); Cholesterol 196 mg/dL (<200); Estimated Glomerular Filt Rate > 60; Free T4 (Free Thyroxine) 1.38 ng/dL (0.71-1.85); Glucose Fasting 81 mg/dL (60-99); HDL Cholesterol 56 mg/dL (>40); LDL Cholesterol Calculated 127 mg/dL (<100); Sodium 136 mmol/L (135-145); Thyroid Stimulating Hormone 0.05 uIU/mL (0.32-4.0); Total Protein 7.5 g/dL (6.5-8.0); Triglycerides 67 mg/dL (<150)
[2024-07-19 13:42] LABS: Potassium 2.9 mmol/L (3.3-5.1)
[2024-07-20 07:59] LABS: Triiodothyronine T3 Total 136 ng/dL (76-181)
== END 2024-07-19 09:46 | disposition home or self-care (01) ==
LOC: HO.WFDLDS 09:45
PROVIDERS: Visit Provider Family Medicine
DX: Z00.00 Encounter for general adult medical examination without abnormal findings (principal); I10 Essential (primary) hypertension; E03.9 Hypothyroidism, unspecified; E53.8 Deficiency of other specified B group vitamins
CPT/HCPCS: 36415; 80053; 80061; 81001; 82043; 82570; 82607; 82746; 84439; 84443; 84480; 85025

== ENCOUNTER 2024-07-21 11:45 | Outpatient (REF) | payer BC, SELFPAY ==
[2024-07-21 14:13] LABS: Appearance Urine Clear; Color Urine Dark Yellow; Glucose Urine UA Negative (Negative); Leukocyte Esterase Urine Negative (Negative); Nitrite Urine Negative (Negative); Specific Gravity - Urine <= 1.005 (1.005-1.025); Urine Blood Negative (Negative); Urine Ketones Negative (Negative); Urine Protein Negative (Neg-Trace)
[2024-07-21 14:38] LABS: Anion Gap 13 (12-20); Blood Urea Nitrogen 11 mg/dL (9-16); Calcium 9.9 mg/dL (8.4-10.2); Carbon Dioxide 29 mmol/L (22-29); Chloride 98 mmol/L (96-108); Estimated Glomerular Filt Rate > 60; Glucose Random 89 mg/dL (60-115); Potassium 3.6 mmol/L (3.3-5.1); Sodium 136 mmol/L (135-145)
== END 2024-07-21 11:46 | disposition home or self-care (01) ==
LOC: HO.WFDLDS 11:45
PROVIDERS: Visit Provider Family Medicine
DX: Z00.00 Encounter for general adult medical examination without abnormal findings (principal); E87.6 Hypokalemia
CPT/HCPCS: 36415; 80048; 81003

== ENCOUNTER 2024-10-02 11:02 | Outpatient (REF) | payer BC, SELFPAY ==
[2024-10-02 13:07] LABS: Free T4 (Free Thyroxine) 1.44 ng/dL (0.71-1.85)
[2024-10-03 20:43] LABS: Triiodothyronine T3 Total 136 ng/dL (76-181)
--- OUTSIDE RECORDS SUMMARY | 2024-10-04 14:59 | XMS_ITS | Patient Health Record ---
Author Organization Urban Pepe MD Address [address] [phone] Care Team Providers Care Track Layer Name Role Phone Alessia Ibarra Primary Care Provider Reason For Referral No Information Encounters Encounter Location Date Provider Diagnosis Urban Pepe MD [facility] [address] [place] [phone] 08/08/2024 Alessia Ibarra Plan Of Treatment Next Appt Details Provider Name:Alessia Ibarra , 11/16/2024 03:30:00 PM, [address] [place] [address], [place] [address], [place], [place], [phone], Insurance Providers Payer Name Payer Address Payer Phone Subscriber Number Group Number Insured Name Patient Relationship to Insured Coverage Start Date Coverage End Date BCBS BLUE CARD [address] [place] [address] [phone] [id number] Vianey Morales Self - patient is the insured
--- OUTSIDE RECORDS SUMMARY | 2024-10-04 14:59 | XMS_ITS ---
Author Organization Urban Pepe MD Address [address] [place] [phone] Care Team Providers Care Pedodontist Name Role Phone Alessia Ibarra Primary Care Provider REASON FOR VISIT New Patient Appt Encounters Encounter Location Date Provider Diagnosis Urban Pepe MD [address] [facility] [address] [place] [phone] 08/08/2024 Alessia Ibarra Plan Of Treatment Next Appt Details Provider Name:Alessia Ibarra , 11/16/2024 03:30:00 PM, [address] [place] [address], [place] [address], [place], [place], [phone], Progress Notes * Cindy MINAYAeDOB: [birth year] (63 yo F)Acc No.[id number]:08/08/2024 Patient:?Vianey MINAYA :1960???Age:63 Y???Sex:Female Address:[place] [address] [address] [address], [address] * true * Date:? Generated for Printi flaca/Arun/eTransmitting on:?10/04/2024 02:59 PM EST
== END 2024-10-02 11:03 | disposition home or self-care (01) ==
LOC: HO.LAB 11:02
PROVIDERS: PCP Family Medicine; Visit Provider Family Medicine
DX: E03.9 Hypothyroidism, unspecified (principal)
CPT/HCPCS: 36415; 84439; 84443; 84480

== ENCOUNTER 2024-10-16 15:44 | Outpatient (AMB) | payer BC, SELFPAY ==
--- NOTE | 2024-10-16 15:42 | A.OFFPC_ITS ---
Intake Visit Reasons: follow up labs Allergies lisinopril Allergy (Mild, Verified 10/16/24 15:43) Cough Tobacco use date assessed: 07/14/24 Dental Screening Dental Screen Date: 07/14/24 HPI follow up labs HPI Details 64 y/o female presents to f/u labs via [facility]. Labs drawn 10/02/24. Reviewed labs with pt. TSH improved from 0.05 to 0.20. She is on levothyroxine 100 mcg daily. T3/T4 still in the normal range. [facility] Medical History (Updated 10/16/24 @ 15:58 by Urban Dewey) Essential hypertension CLARK (dyspnea on exertion) Palpitation Stable angina Hypothyroidism Ulcerative colitis Surgical History History of section History of cholecystectomy Family History Mother Ovarian cancer, Onset Age: 85 Maternal Grandmother CVD (cardiovascular disease) Sister Diabetes Father John disease Tuberculosis Social History (Updated 07/14/24 @ 10:16 by Edison Pozo [facility]) Housing: House Alcohol intake: current Alcohol intake frequency: holidays/special occasions only Patient Tobacco Use Status: Former Tobacco user e-Cigarette/Vaping Use: Never Used Second Hand Smoke Exposure: No Substance Use Type: Marijuana Advance Directives Date on File: 02/09/23 service: No Current occupational status: employed Current occupation: [employer] Cognitive needs: No Hearing needs: No Vision needs: Yes (glasses) Questionnaire Thrive Questionnaire Date Thrive assessed: 07/14/24 CARLEE-7 AMB Questionnaire CARLEE-7 Date CARLEE - 7 assessed: 07/14/24 Source: Developed by Drs. Anoop Johnson, Briana Dunbar, Darrick Wallace and colleagues, with an educational jenny from [employer]. Review of Systems Const Denies chills, Denies fatigue, Denies fever(s), Denies headache(s) and Denies weakness ENT Denies dizziness and Denies headache(s) Card Denies dyspnea Resp Denies cough, Denies dyspnea, Denies wheezing and Denies other (shortness of breath) Musc Denies numbness and Denies tingling Neuro Denies dizziness, Denies headache(s), Denies numbness, Denies tingling and Denies weakness Psych Denies anxiety and Denies depression Endo Denies fatigue Aller/Immun Denies wheezing Physical exam (Primary Care) Tobacco/Smoking Status: Tobacco use Status Tobacco use date assessed 07/14/24 10/16/24 15:43 Patient Tobacco Use Status Former Tobacco user 10/16/24 15:43 e-Cigarette/Vaping Use Never Used 10/16/24 15:43 Thrive Assessment: Date of Thrive Assessment Date Thrive assessed 07/14/24 10/16/24 15:43 Telehealth Telehealth Telehealth Platform: Telephone Location of provider rendering services: practice address Location of patient: address on file Patient Identification confirmed using: Name, : Yes Telehealth method: voice only Patient verbally consented to treatment: Yes Patient verbally consented to billing insurance company: Yes Patient informed of any privacy concerns related to visit: Yes Coding Level of Care Code Tele Est Pt Level 2 (20021) Diagnoses Hypothyroidism E03.9 Diabetes type 2, controlled E11.9 Elevated LDL cholesterol level E78.00 Assessment & Plan Assessment & Plan (1) Hypothyroidism: Code(s): E03.9 - Hypothyroidism, unspecified Category: Medical Plan: TSH?remains?suppressed?though?closer?to?normal?range.??Free?T4?and?total?T4?isidro in?in?normal?range No?additional?changes?to?her?levothyroxine?but?w ill?recheck?labs?with?next?blood?draw. (2) Diabetes type 2, controlled: Code(s): E11.9 - Type 2 diabetes mellitus without complications Category: Medical Plan: Patient?has?not?been?able?to?get?her?Mounjaro.??She?says?that?the?insurance?comp any?is?declining?it?due?to?it?not?being?prescribed?explicitly?for?diabetes. Resending?script?for?Mounjaro?with?diagnosis?of?diabetes?included Will?ask?the?nurse?navigator?to?follow-up?on?this?to?ensure?this? has?been?approved. (3) Elevated LDL cholesterol level: Code(s): E78.00 - Pure hypercholesterolemia, unspecified Category: Medical Plan: LDL?cholesterol?is?too?high Encouraged?a?diet?lower?in?saturated?fats?and?cholesterol Will?recheck?in?a?few?months?and?review?with?patient Orders: Orders Comprehensive Col[place]. Panel Fast Today Z00.00 - Encounter for general adult medical examination without abnormal findings Hemoglobin A1c Today E11.9 - Type 2 diabetes mellitus without complications, R73.01 - Impaired fasting glucose Free T4 (Free Thyroxine) Today E03.9 - Hypothyroidism, unspecified Thyroid Stimulating Hormone Today E03.9 - Hypothyroidism, unspecified Lipid Panel Today Z00.00 - Encounter for general adult medical examination without abnormal findings Triiodothyronine T3 Total Today E03.9 - Hypothyroidism, unspecified Medications: Changed From tirzepatide (Mounjaro) 15 mg (0.5 mL) subcut ONCE 28 days 14 mL 3RF E11.9 - Type 2 diabetes mellitus without complications, E66.9 - Obesity, unspecified, Z68.34 - Body mass index [BMI] 34.0-34.9, adult To tirzepatide (Mounjaro) 15 mg (0.5 mL) subcut QWEEK 28 days 2 mL 3RF E11.9 - Type 2 diabetes mellitus without complications, E66.9 - Obesity, unspecified, Z68.34 - Body mass index [BMI] 34.0-34.9, adult Discontinued tirzepatide (Mounjaro) Discontinued Reason: Doctor's Order 15 mg (0.5 mL) subcut ONCE 28 days 14 mL 3RF
== END 2024-10-16 17:05 | disposition home or self-care (01) ==
LOC: HO.HMCFM 15:44
PROVIDERS: PCP Family Medicine; Visit Provider Family Medicine
DX: E03.9 Hypothyroidism, unspecified (principal); E11.9 Type 2 diabetes mellitus without complications; E78.00 Pure hypercholesterolemia, unspecified